=== PATIENT | male | born 1990 | race Caucasian/White ===

== ENCOUNTER 2023-08-08 15:14 | Emergency (ER) | payer OTHER ==
[~2023-08-08] VITALS: Ht 165.1 cm; Wt 59.0 kg
[2023-08-08 15:23] VITALS: BP 126/80; PULSE 112; RESP 20; TEMP 97.3; O2SAT 96
== END 2023-08-08 15:43 ==
LOC: MED 15:14
DX: F15.10 Other stimulant abuse, uncomplicated (principal); Z76.5 Malingerer [conscious simulation]
CPT/HCPCS: 99283